=== PATIENT | female | born 1990 | race American Indian/Alaskan Native ===

== ENCOUNTER 2017-07-30 18:04 | Emergency (ER) | payer OTHER ==
[2017-07-30 18:04] VITALS: BMI 21.1
[2017-07-30 18:32] VITALS: RESP 18
--- NOTE | 2017-07-30 19:22 | C.PDOC ---
History Of Present Illness 27yo female presents to ER for evaluation of cough, fever and bodyaches since earlier today. Patient denies any nausea or vomiting. Of note, patient has positive sick contact as her kids are unwell and in this ER as well. Time Seen by Provider: 07/30/17 19:13 Chief Complaint (Nursing): Flu-like Symptoms History/Exam Limitations: no limitations Onset/Duration Of Symptoms: Days Current Symptoms Are (Timing): Still Present Location Of Pain: Diffuse Myalgias, Headache Sick Contacts (Context): Family Member(s) Associated Symptoms: Fever, Chills. denies: Nausea, Vomiting Past Medical History Reviewed: Historical Data, Nursing Documentation, Vital Signs Vital Signs: Last Vital Signs Temp 98.6 F 07/30/17 18:30 Pulse 64 07/30/17 18:30 Resp 18 07/30/17 18:30 BP 95/65 L 07/30/17 18:30 Pulse Ox 97 07/30/17 19:41 - Medical History PMH: No Chronic Diseases Surgical History: Cholecystectomy Family History: States: Unknown Family Hx - Social History Hx Tobacco Use: Yes Hx Alcohol Use: No Hx Substance Use: No - Immunization History Hx Tetanus Toxoid Vaccination: No Hx Influenza Vaccination: Yes Hx Pneumococcal Vaccination: No Review Of Systems Constitutional: Positive for: Fever, Chills, Other (bodyaches) Respiratory: Positive for: Cough Gastrointestinal: Negative for: Nausea, Vomiting, Diarrhea Physical Exam - Physical Exam Appears: Non-toxic, No Acute Distress Skin: Normal Color, Warm, Dry, No Rash Head: Atraumatic, Normacephalic Eye(s): bilateral: Normal Inspection, EOMI Ear(s): Bilateral: Normal (no erythema) Nose: Normal, No Discharge Oral Mucosa: Moist Throat: Normal, No Erythema, No Exudate Neck: Normal ROM, Supple Chest: Symmetrical Cardiovascular: Rhythm Regular, No Murmur Respiratory: Normal Breath Sounds, No Wheezing Extremity: Bilateral: Atraumatic, Normal ROM Neurological/Psych: Oriented x3, Normal Speech Gait: Steady ED Course And Treatment O2 Sat by Pulse Oximetry: 97 (RA) Pulse Ox Interpretation: Normal Medical Decision Making Medical Decision Making: Impression: Influenza like illness Plan: Based on clinical presentation and onset of symptoms, patient to be prescribed Tamiflu. Patient instructed to stay well hydrated and to follow up with PCP in 1 -2 days. Disposition Counseled Patient/Family Regarding: Diagnosis, Need For Followup, Rx Given - Disposition Disposition: HOME/ ROUTINE Disposition Time: 19:21 Condition: GOOD Additional Instructions: You have influenza. Take Tamiflu twice a day for 5 days. Take Tylenol or Motrin alternating every 4-6 hours for Fever 100.4F or higher. Rest and drink plenty of fluids. Try symptomatic relief. Symptoms can last 7-10 days. Follow up with your primary medical doctor or clinic in 2-5 days for further evaluation. Return to the emergency department at any time if symptoms persist or worsen. 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 - Scribe Statement The provider has reviewed the documentation as recorded by the Scribe (Kajal Best) Provider Attestation: All medical record entries made by the Scribe were at my direction and personally dictated by me. I have reviewed the chart and agree that the record accurately reflects my personal performance of the history, physical exam, medical decision making, and the department course for this patient. I have also personally directed, reviewed, and agree with the discharge instructions and disposition.
[2017-07-30 19:58] VITALS: BP 108/72; PULSE 105; TEMP 98.9; O2SAT 99
== END 2017-07-30 19:58 | disposition home or self-care (01) ==
LOC: C.ER 18:04
DX: J11.1 Influenza due to unidentified influenza virus with other respiratory manifestations (principal); Z72.0 Tobacco use

== ENCOUNTER 2017-08-26 19:46 | Emergency (ER) | payer OTHER ==
[2017-08-26 19:46] VITALS: BMI 21.1
[2017-08-26 20:23] VITALS: BP 112/70; PULSE 87; RESP 18; TEMP 98; O2SAT 99
[2017-08-26 21:38] LABS: HCG,QUALITATIVE URINE NEGATIVE (NEGATIVE)
[2017-08-26 21:40] LABS: SQUAMOUS EPITHIAL 7 /hpf (0-5); URINE BACTERIA RARE (<OCC); URINE BILIRUBIN NEGATIVE (NEGATIVE); URINE BLOOD 1+ (NEGATIVE); URINE CLARITY Hazy (Clear); URINE COLOR Yellow (YELLOW); URINE GLUCOSE (UA) NORMAL (Normal); URINE LEUKOCYTE ESTERASE 1+ Leu/uL (Negative); URINE PROTEIN NEGATIVE (NEGATIVE); URINE UROBILINOGEN NORMAL mg/dL (0.2-1.0)
--- NOTE | 2017-08-26 21:40 | C.PDOC ---
History Of Present Illness 27 y/o female complaining of pelvic pain and vaginal irritation, going on for several days. Last pap smear was done 2 months ago and was normal. She denies any vaginal bleeding, fever, hematuria, dysuria, or frequency. Time Seen by Provider: 08/26/17 21:27 Chief Complaint (Nursing): Female Genitourinary History Per: Patient History/Exam Limitations: no limitations Onset/Duration Of Symptoms: Days Current Symptoms Are (Timing): Still Present Past Medical History Reviewed: Historical Data, Nursing Documentation, Vital Signs Vital Signs: Last Vital Signs Temp 98 F 08/26/17 20:21 Pulse 87 08/26/17 20:21 Resp 18 08/26/17 20:21 BP 112/70 08/26/17 20:21 Pulse Ox 99 08/26/17 22:18 - Medical History PMH: Hepatitis (C) Surgical History: Cholecystectomy Family History: States: Unknown Family Hx - Social History Hx Tobacco Use: Yes Hx Alcohol Use: No Hx Substance Use: No - Immunization History Hx Tetanus Toxoid Vaccination: No Hx Influenza Vaccination: Yes Hx Pneumococcal Vaccination: No Review Of Systems Except As Marked, All Systems Reviewed And Found Negative. Constitutional: Negative for: Fever, Chills Gastrointestinal: Positive for: Abdominal Pain (suprapubic) Genitourinary: Positive for: Other (vaginal irritation). Negative for: Dysuria , Frequency, Incontinence, Hematuria, Vaginal Bleeding Physical Exam - Physical Exam Appears: Non-toxic, No Acute Distress Skin: Normal Color, Warm, Dry Head: Atraumatic, Normacephalic Eye(s): bilateral: Normal Inspection, PERRL, EOMI Nose: Normal Oral Mucosa: Moist Neck: Normal ROM, Supple Chest: Symmetrical Cardiovascular: Rhythm Regular, No Murmur Respiratory: Normal Breath Sounds, No Accessory Muscle Use Gastrointestinal/Abdominal: Soft, No Tenderness (to suprapubic area), No Distention Pelvic: Vaginal Discharge (yellow-parminder), Cervical Motion Tenderness, Other (On vaginal wall, + cottage cheese discharge) Extremity: Bilateral: Atraumatic, Normal Color And Temperature, Normal ROM Neurological/Psych: Oriented x3, Normal Speech ED Course And Treatment O2 Sat by Pulse Oximetry: 99 (RA) Pulse Ox Interpretation: Normal Progress Note: UA shows + leuks and blood. Chlamydia/GC ordered. Patient given Zithro and Rocephin in the ED. Will d/c home with rx for Flagyl, Diflucan, and Doryx. Disposition - Disposition Referrals: Non [facility] Provider, [Primary Care Provider] - Disposition: HOME/ ROUTINE Disposition Time: 22:09 Condition: STABLE Additional Instructions: Follow up with PMD and OBGYN within 1-2 days. return to ED if feel worse. 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 - Scribe Statement The provider has reviewed the documentation as recorded by the Scribe (Joya Cisneros) All medical record entries made by the Scribe were at my direction and personally dictated by me. I have reviewed the chart and agree that the record accurately reflects my personal performance of the history, physical exam, medical decision making, and the department course for this patient. I have also personally directed, reviewed, and agree with the discharge instructions and disposition.
[2017-08-26] MEDS ORDERED: cefTRIAXone 250 MG, Lidocaine Hydrochloride 1% 1 ML IM STA (22:04)
== END 2017-08-26 22:45 | disposition home or self-care (01) ==
LOC: C.ER 19:46 → SUPCPDRO 19:46 → C.ER 22:45
DX: R10.2 Pelvic and perineal pain (principal)
CPT/HCPCS: 81001; 84703; 87491; 87591; 96372; 99284; J0696

== ENCOUNTER 2018-09-15 18:55 | Emergency (ER) | payer OTHER ==
[2018-09-15 18:55] VITALS: BMI 21.1
[2018-09-15 19:19] VITALS: O2SAT 100
--- NOTE | 2018-09-15 20:56 | C.PDOC ---
History Of Present Illness 28 year old female presents to ED with complaint of digitally reproducible pain at the sternum for the past 2 weeks. Patient has a 2 year old toddler at home and does a lot of lifting throughout the day. She has PMHx of sickle cell trait with no anemia or crisis. Patient denies substernal chest pressure, SOB, and palpitations. Time Seen by Provider: 09/15/18 20:44 Chief Complaint (Nursing): Chest Pain History Per: Patient History/Exam Limitations: no limitations Onset/Duration Of Symptoms: Other (2 weeks) Current Symptoms Are (Timing): Still Present Quality: "Pain" Associated Symptoms: denies: Dyspnea Modifying Factors: None Exacerbating Factors: None Alleviating Factors: None Past Medical History Reviewed: Historical Data, Nursing Documentation, Vital Signs Vital Signs: Last Vital Signs Temp 98.2 F 09/15/18 19:12 Pulse 89 09/15/18 19:12 Resp 16 09/15/18 19:12 BP 120/79 09/15/18 19:12 Pulse Ox 100 09/15/18 19:12 - Medical History PMH: Hepatitis (C) Denies: Anemia Other PMH: sickle cell trait Surgical History: Cholecystectomy Family History: States: Unknown Family Hx - Social History Hx Tobacco Use: Yes Hx Alcohol Use: No Hx Substance Use: No - Immunization History Hx Tetanus Toxoid Vaccination: No Hx Influenza Vaccination: No Hx Pneumococcal Vaccination: No Review Of Systems Constitutional: Negative for: Weakness Cardiovascular: Positive for: Chest Pain (sternum). Negative for: Palpitations, Other (chest pressure) Respiratory: Negative for: Cough, Shortness of Breath, Hemoptysis, Sputum Gastrointestinal: Negative for: Nausea Neurological: Negative for: Dizziness Physical Exam - Physical Exam Appears: No Acute Distress, Other (black female) Skin: Normal Color, Warm, Dry, No Rash Head: Atraumatic, Normacephalic Neck: Normal ROM, Other Chest: Symmetrical, No Deformity, Other (digitally reproducible pain bilaterally to the parasternum) Cardiovascular: Rhythm Regular, No Murmur Respiratory: No Accessory Muscle Use, No Rales, No Rhonchi, No Wheezing Gastrointestinal/Abdominal: Soft, No Tenderness Neurological/Psych: Oriented x3, Normal Speech, Normal Cognition ED Course And Treatment ECG: Interpreted By Me, Viewed By Me ECG Rhythm: Sinus Rhythm ECG Interpretation: Normal Rate From EC O2 Sat by Pulse Oximetry: 100 (in RA) Progress Note: Patient given Motrin PO. Medical Decision Making Medical Decision Makin3 y/o @ home, 1 month of b/l sternal costochondritis normal ekg no rash ice/NSAIDS Disposition Doctor Will See Patient In The: Office Counseled Patient/Family Regarding: Studies Performed, Diagnosis - Disposition Referrals: Candace Wang MD [Non-Staff] - Disposition: HOME/ ROUTINE Disposition Time: 20:56 Condition: GOOD Additional Instructions: ice packs 1/2 hour per hour, nothing hot motrin/Advil 400-600 mg every 6 hours avoid heavy lifting x 1 week NORMAL EKG today Instructions: Costochondritis Forms: [employer] (Czech) - Clinical Impression Clinical Impression: Chest wall discomfort - Scribe Statement The provider has reviewed the documentation as recorded by the Scribe (Ghazal Coyle) All medical record entries made by the Scribe were at my direction and personally dictated by me. I have reviewed the chart and agree that the record accurately reflects my personal performance of the history, physical exam, medical decision making, and the department course for this patient. I have also personally directed, reviewed, and agree with the discharge instructions and disposition.
[2018-09-15 21:09] VITALS: BP 147/76; PULSE 86; RESP 14; TEMP 98
--- NOTE | 2018-09-17 14:03 | CARD ---
APPROVED REPORT Date of service: 09/15/2018 EKG Measurement Heart [id number] <Conclusion> Normal sinus rhythm Normal ECG
== END 2018-09-15 21:12 | disposition home or self-care (01) ==
LOC: C.ER 18:55
DX: R07.89 Other chest pain (principal)